=== PATIENT | female | born 2000 | race Hispanic/Latino ===

== ENCOUNTER 2022-07-30 19:00 | Inpatient (IN) | payer OTHER ==
[~2022-07-30 19:00] MED LIST: Bupivacaine 0.25% HCL 30 ML VIAL ONE; Bupivacaine PF 0.5% 30 ML VIAL ONE; Lidocaine 2% MPF 10 ML AMP (For Epidural Use) ONE
[2022-07-30] MEDS ORDERED: Acetaminophen 500 MG TAB PO PRN (22:16)
[2022-07-30] MEDS ORDERED: Misoprostol 200 MCG TAB PR PRN (22:16)
[2022-07-30] MEDS ORDERED: Carboprost 250 MCG/ML AMP IM PRN (22:16)
[2022-07-30] MEDS ORDERED: Diphenoxylate HCl/Atropine Tablet PO PRN ×2 (22:16)
[2022-07-30] MEDS ORDERED: Zolpidem Tartrate 5 MG TAB PO PRN (22:16)
[2022-07-30] MEDS ORDERED: hydrALAZINE 20 MG/ML VIAL SLOW IVP PRN (22:16)
[2022-07-30] MEDS ORDERED: Promethazine HCl 25 MG/ML VIAL IM PRN (22:16)
[2022-07-30] MEDS ORDERED: Docusate 100 MG CAP PO PRN (22:16)
[2022-07-30] MEDS ORDERED: Ondansetron PF 4 MG/2 ML Vial IVP PRN (22:16)
[2022-07-30] MEDS ORDERED: Ibuprofen 800 MG TAB PO PRN (22:16)
[2022-07-30] MEDS ORDERED: Lidocaine 1% (PF) 30 ML VIAL SC PRN (22:16)
[2022-07-30] MEDS ORDERED: Butorphanol Tartrate 1 MG/ML VIAL SLOW IVP PRN (22:16)
[2022-07-30] MEDS ORDERED: NS w/ Oxytocin 30 units 500 ML IV SCH ×3 (22:16)
[2022-07-30] MEDS ORDERED: HYDROcodone/Acetaminophen 5/325 mg Tablet PO PRN ×2 (22:16)
[2022-07-30 22:18] VITALS: BMI 36.2
[2022-07-31] MEDS: Lactated Ringer's 1,000 ML IV SCH ×2 (00:25→03:57)
[2022-07-31] MEDS: Misoprostol 100 MCG TAB VAG SCH ×2 (00:25→03:56)
[2022-07-31 00:48] LABS: Mean Corpuscular HGB CONC 31.8 g/dL (32.0-36.0); Mean Corpuscular Hemoglobin 24.7 pg (27.0-33.0); Mean Corpuscular Volume 77.5 fl (81.6-98.3); Mean Platelet Volume 10.9 fl (7.4-10.4); Platelet Count 282 10x3/uL (150-450); RBC Distribution Width 15.1 % (11.5-14.5); Red Blood Cell (RBC) Count 4.05 10x6/uL (3.90-5.03); White Blood Cell (WBC) Count 12.8 10x3/uL (3.5-10.5)
[2022-07-31 01:29] LABS: Syphilis Antibody Nonreactive (Nonreactive); Syphilis Antibody Index 0.58 S/CO (<1.00 Non-Reactive)
[2022-07-31 01:30] LABS: HBSAg Index 0.13 S/CO (0-0.99); HIV (1/2) Antibody/Antigen Non-Reactive (NonReactive); HIV 1/2 INDEX 0.08 S/CO (<1.00); Hep B Surf Ag - L&D Non-Reactive S/CO (NonReactive)
[2022-07-31] MEDS ORDERED: Fentanyl 2 mcg/Bup 0.1% Cadd 100 ML ONE ×2 (09:31→18:01)
[2022-07-31] MEDS ORDERED: Bisacodyl 10 MG SUPP PR PRN (20:41)
[2022-07-31] MEDS ORDERED: Ondansetron PF 4 MG/2 ML Vial IVP PRN (20:41)
[2022-07-31] MEDS ORDERED: Misoprostol 200 MCG TAB VAG PRN (20:41)
[2022-07-31] MEDS ORDERED: HYDROcodone/Acetaminophen 5/325 mg Tablet PO PRN (20:41)
[2022-07-31] MEDS ORDERED: Preparation H Ointment 28 GM TUBE PR PRN (20:41)
[2022-07-31] MEDS ORDERED: Benzocaine-Menthol 82.5 ML CAN TOP PRN (20:41)
[2022-07-31] MEDS ORDERED: Boostrix 0.5 ML (Tdap) VIAL (>/=7 yrs of age) IM ONE (20:41)
[2022-07-31] MEDS ORDERED: hydrALAZINE 20 MG/ML VIAL SLOW IVP PRN (20:41)
[2022-07-31] MEDS ORDERED: diphenhydrAMINE 25 MG CAP PO PRN (20:41)
[2022-07-31] MEDS ORDERED: Milk Of Magnesia 30 ML UDCUP PO PRN (20:41)
[2022-07-31] MEDS ORDERED: NS w/ Oxytocin 30 units 500 ML IV SCH (20:45)
[2022-08-01] MEDS: Ibuprofen 800 MG TAB PO SCH ×4 (00:38→21:56)
[2022-08-01] MEDS: Docusate 100 MG CAP PO SCH ×3 (00:55→21:55)
[2022-08-01 07:15] LABS: Hemoglobin 9.6 g/dL (12.0-15.5); Mean Corpuscular HGB CONC 32.4 g/dL (32.0-36.0); Mean Corpuscular Volume 77.1 fl (81.6-98.3); Mean Platelet Volume 10.6 fl (7.4-10.4); Platelet Count 297 10x3/uL (150-450); RBC Distribution Width 15.2 % (11.5-14.5); Red Blood Cell (RBC) Count 3.84 10x6/uL (3.90-5.03); White Blood Cell (WBC) Count 32.1 10x3/uL (3.5-10.5)
[2022-08-01] MEDS: Ferrous Sulfate 325 MG TAB PO SCH ×2 (08:53→17:46)
[2022-08-01] MEDS: Misoprostol 100 MCG TAB VAG SCH ×2 (08:55→08:56)
[2022-08-01] MEDS: Lactated Ringer's 1,000 ML IV SCH (08:56)
[2022-08-01] MEDS: HYDROcodone/Acetaminophen 5/325 mg Tablet PO PRN (10:36)
[2022-08-02] MEDS: Ibuprofen 800 MG TAB PO SCH ×2 (05:02→14:05)
[2022-08-02] MEDS: HYDROcodone/Acetaminophen 5/325 mg Tablet PO PRN (05:03)
[2022-08-02 07:49] VITALS: BP 115/57; TEMP 98.4
[2022-08-02] MEDS: Ferrous Sulfate 325 MG TAB PO SCH (08:48)
[2022-08-02] MEDS: Docusate 100 MG CAP PO SCH (08:49)
== END 2022-08-02 14:45 | disposition home or self-care (01) | DRG 806 ==
LOC: CSHLD 21:44 → CSHPED 08-01 00:10
PROVIDERS: ADMIT Obstetrics & Gynecology; ATTEND Obstetrics & Gynecology
PROC: 10E0XZZ Delivery of Products of Conception, External Approach (ICD-10-PCS; principal; 2022-07-31)
PROC: 0KQM0ZZ Repair Perineum Muscle, Open Approach (ICD-10-PCS; 2022-07-31)
DX: O69.81X0 Labor and delivery complicated by cord around neck, without compression, not applicable or unspecified (principal); O99.354 Diseases of the nervous system complicating childbirth; Z37.0 Single live birth; G43.909 Migraine, unspecified, not intractable, without status migrainosus; F41.9 Anxiety disorder, unspecified; F32.A Depression, unspecified; D64.9 Anemia, unspecified; O99.344 Other mental disorders complicating childbirth; O99.02 Anemia complicating childbirth; O70.1 Second degree perineal laceration during delivery; Z3A.40 40 weeks gestation of pregnancy; Z88.0 Allergy status to penicillin
CPT/HCPCS: 36415; 51702; 85027; 86780; 86850; 86900; 86901; 87340; 87389; J7120; S0020

== ENCOUNTER 2022-08-09 01:46 | Emergency (ER) | payer OTHER ==
[2022-08-10 00:46] LABS: Chlamydia by PCR, Vaginal Swab Not Detected (NotDetected); GC by PCR, Vaginal Swab Not Detected (NotDetected)
== END 2022-08-09 02:28 | disposition home or self-care (01) ==
LOC: CSHERS 01:46
DX: N76.0 Acute vaginitis (principal); F17.290 Nicotine dependence, other tobacco product, uncomplicated
CPT/HCPCS: 87480; 87491; 87510; 87591; 87660; 99283

== ENCOUNTER 2024-03-25 20:48 | Emergency (ER) | payer OTHER ==
[2024-03-25] MEDS ORDERED: Ketorolac Tromethamine 30 MG (1 mL) VIAL ONE (21:39)
[2024-03-25] MEDS ORDERED: Magnesium 2 GM/50 ML BAG (IN WATER) ONE (21:39)
[2024-03-25] MEDS ORDERED: Labetalol HCl 100 MG/20 ML VIAL ONE (21:39)
[2024-03-25 22:42] LABS: #Basophils 0.04 10x3/uL (0.0-0.2); #Eosinophils 0.11 10x3/uL (0.0-0.5); #Neutrophils 6.78 10x3/uL (1.5-8.4); %Basophils 0.4 % (0.0-2.0); %Eosinophils 1.2 % (0.0-6.0); %Lymphocytes 14.6 % (18.0-47.0); %Monocytes 7.7 % (0.0-10.0); %Neutrophils 74.9 % (40.0-75.0); Hematocrit 33.8 % (34.9-44.5); Hemoglobin 10.9 g/dL (12.0-15.5); Mean Corpuscular HGB CONC 32.2 g/dL (32.0-36.0); Mean Corpuscular Hemoglobin 24.6 pg (27.0-33.0); Mean Corpuscular Volume 76.3 fL (81.6-98.3); Mean Platelet Volume 8.9 fL (7.4-10.4); Platelet Count 380 10x3/uL (150-450); RBC Distribution Width 22.7 % (11.5-14.5); Red Blood Cell (RBC) Count 4.43 10x6/uL (3.90-5.03); White Blood Cell (WBC) Count 9.1 10x3/uL (3.5-10.5)
[2024-03-25 23:01] LABS: ALT (SGPT) 28 U/L (8-55); AST (SGOT) 20 U/L (5-34); Alkaline Phosphatase 115 U/L (40-110); Anion Gap 18 mmol/L (10-20); BUN (Urea Nitrogen) 8 mg/dL (7.0-18.7); Bilirubin, Total 0.3 mg/dL (0.2-1.2); Calc. Creatinine Clearance 0 mL/min (70-130); Carbon Dioxide 20 mmol/L (22-29); Chloride 106 mmol/L (98-107); Estimated GFR 115; Glucose 73 mg/dL (70-105); Lipase 49 U/L (8-78); Potassium 4.2 mmol/L (3.5-5.1); Sodium 140 mmol/L (136-145)
== END 2024-03-25 22:50 | disposition home or self-care (01) ==
LOC: CSHERS 20:48
DX: O14.95 Unspecified pre-eclampsia, complicating the puerperium (principal); O86.4 Pyrexia of unknown origin following delivery
CPT/HCPCS: 36415; 80053; 83605; 83690; 84145; 85025; 87040; 87428; 96374; 96375; J1885; J3475

== ENCOUNTER 2024-04-12 20:53 | Emergency (ER) | payer OTHER ==
[2024-04-12] MEDS ORDERED: Labetalol HCl 100 MG/20 ML VIAL ONE (21:24)
[2024-04-12] MEDS ORDERED: Magnesium 2 GM/50 ML BAG (IN WATER) ONE (21:25)
[2024-04-12 21:45] LABS: #Basophils 0.04 10x3/uL (0.0-0.2); #Eosinophils 0.21 10x3/uL (0.0-0.5); #Monocytes 0.61 10x3/uL (0.0-1.1); %Basophils 0.4 % (0.0-2.0); %Eosinophils 2.3 % (0.0-6.0); %Lymphocytes 13.5 % (18.0-47.0); %Monocytes 6.8 % (0.0-10.0); %Neutrophils 76.6 % (40.0-75.0); Hematocrit 35.1 % (34.9-44.5); Hemoglobin 11.4 g/dL (12.0-15.5); Mean Corpuscular HGB CONC 32.5 g/dL (32.0-36.0); Mean Corpuscular Hemoglobin 24.9 pg (27.0-33.0); Mean Corpuscular Volume 76.6 fL (81.6-98.3); Mean Platelet Volume 8.9 fL (7.4-10.4); Platelet Count 359 10x3/uL (150-450); RBC Distribution Width 18.6 % (11.5-14.5); Red Blood Cell (RBC) Count 4.58 10x6/uL (3.90-5.03)
[2024-04-12 22:01] LABS: Prothrombin Time 10.7 sec (9.5-12.1)
[2024-04-12 22:08] LABS: ALT (SGPT) 22 U/L (8-55); AST (SGOT) 16 U/L (5-34); Albumin 3.6 g/dL (3.5-5.0); Alkaline Phosphatase 80 U/L (40-110); Anion Gap 16 mmol/L (10-20); BUN (Urea Nitrogen) 12 mg/dL (7.0-18.7); Bilirubin, Total Less than 0.2 mg/dL (0.2-1.2); Calc. Creatinine Clearance 0 mL/min (70-130); Carbon Dioxide 21 mmol/L (22-29); Chloride 109 mmol/L (98-107); Estimated GFR 108; Globulin 3.7 g/dL (2.4-3.5); Glucose 106 mg/dL (70-105); Magnesium 1.8 mg/dL (1.6-2.6); Potassium 3.5 mmol/L (3.5-5.1); Protein, Total 7.3 g/dL (6.0-8.3); Sodium 142 mmol/L (136-145)
[2024-04-12 22:18] LABS: Bilirubin Neg (Negative); Blood, Urine Negative (Negative); Clarity Clear (Clear); Glucose, Urine (Dipstick) Normal (Negative); Ketone, Urine Negative (Negative); Leukocyte 100 (Negative); Nitrite Negative (Negative); Protein, Urine (Dipstick) Negative (Neg-Trace); Specific Gravity, Urine 1.005 (1.005-1.030); Urobilinogen Normal mg/dL (Less than 2)
[2024-04-12 22:39] LABS: Bacteria/HPF Rare-Few HPF (None Seen); CAUTI Indications for Culture Pregnancy; RBC/HPF 0-3 HPF (0-3); Squamous Epithelial 0-3 HPF (0-3); WBC/HPF 0-3 HPF (0-3)
[2024-04-12 22:40] LABS: Urine Culture Reflex Yes Yes
== END 2024-04-12 22:28 | disposition home or self-care (01) ==
LOC: CSHERS 20:53
DX: O16.5 Unspecified maternal hypertension, complicating the puerperium (principal); Z79.899 Other long term (current) drug therapy
CPT/HCPCS: 80053; 81001; 83735; 85025; 85610; 85730; 87086; 96374; 96375; J3475

== ENCOUNTER 2024-04-24 19:36 | Emergency (ER) | payer OTHER ==
[2024-04-24 21:06] LABS: #Basophils 0.03 10x3/uL (0.0-0.2); #Eosinophils 0.16 10x3/uL (0.0-0.5); #Monocytes 0.66 10x3/uL (0.0-1.1); #Neutrophils 7.11 10x3/uL (1.5-8.4); %Basophils 0.3 % (0.0-2.0); %Eosinophils 1.6 % (0.0-6.0); %Lymphocytes 19.7 % (18.0-47.0); %Monocytes 6.6 % (0.0-10.0); %Neutrophils 71.6 % (40.0-75.0); Hematocrit 36.6 % (34.9-44.5); Mean Corpuscular HGB CONC 32.8 g/dL (32.0-36.0); Mean Corpuscular Hemoglobin 24.7 pg (27.0-33.0); Mean Corpuscular Volume 75.5 fL (81.6-98.3); Mean Platelet Volume 8.9 fL (7.4-10.4); Platelet Count 412 10x3/uL (150-450); RBC Distribution Width 16.6 % (11.5-14.5); Red Blood Cell (RBC) Count 4.85 10x6/uL (3.90-5.03); White Blood Cell (WBC) Count 9.94 10x3/uL (3.5-10.5)
[2024-04-24 21:18] LABS: ALT (SGPT) 25 U/L (8-55); AST (SGOT) 19 U/L (5-34); Albumin 4.2 g/dL (3.5-5.0); Alkaline Phosphatase 87 U/L (40-110); Anion Gap 16 mmol/L (10-20); BUN (Urea Nitrogen) 12 mg/dL (7.0-18.7); Bilirubin, Total 0.2 mg/dL (0.2-1.2); Calc. Creatinine Clearance 0 mL/min (70-130); Calcium 10.2 mg/dL (7.8-10.44); Carbon Dioxide 24 mmol/L (22-29); Chloride 103 mmol/L (98-107); Estimated GFR 107; Glucose 91 mg/dL (70-105); Lipase 78 U/L (8-78); Potassium 3.9 mmol/L (3.5-5.1); Protein, Total 8.2 g/dL (6.0-8.3); Sodium 139 mmol/L (136-145)
[2024-04-24 21:24] LABS: Troponin I Less than 0.010 ng/mL (< 0.028)
[2024-04-24 22:33] LABS: Bilirubin Neg (Negative); Blood, Urine 250 (Negative); Clarity Cloudy (Clear); Glucose, Urine (Dipstick) Normal (Negative); Ketone, Urine 15 mg/dL (Negative); Leukocyte 25 (Negative); Nitrite Negative (Negative); Protein, Urine (Dipstick) 30 mg/dl (Neg-Trace); Urobilinogen Normal mg/dL (Less than 2)
[2024-04-24 22:41] LABS: Bacteria/HPF Rare-Few HPF (None Seen); CAUTI Indications for Culture Pregnancy; RBC/HPF 21-50 HPF (0-3); Squamous Epithelial 0-3 HPF (0-3); WBC/HPF 0-3 HPF (0-3)
[2024-04-24 22:43] LABS: Urine Culture Reflex Yes Yes
[2024-04-24 23:15] LABS: Pregnancy Test - Urine (BHCG) Negative (Negative); Pregu Control Background? CLEAR/WHITE (CLR/WHITE); Pregu Control Bar Appear? YES (CONTROL BAR)
== END 2024-04-24 23:53 | disposition home or self-care (01) ==
LOC: CSHERS 19:36
DX: K80.20 Calculus of gallbladder without cholecystitis without obstruction (principal)
CPT/HCPCS: 36415; 71045; 74176; 80053; 81001; 81025; 83690; 84484; 85025; 85379; 87086; 93005

== ENCOUNTER 2024-05-12 10:39 | Outpatient (CLI) | payer OTHER ==
[2024-05-12 11:48] LABS: #Basophils Less than 0.03 10x3/uL (0.0-0.2); #Eosinophils 0.33 10x3/uL (0.0-0.5); #Monocytes 0.65 10x3/uL (0.0-1.1); #Neutrophils 5.58 10x3/uL (1.5-8.4); %Basophils 0.3 % (0.0-2.0); %Eosinophils 4.1 % (0.0-6.0); %Lymphocytes 16.9 % (18.0-47.0); %Monocytes 8.2 % (0.0-10.0); Hematocrit 34.8 % (34.9-44.5); Hemoglobin 10.8 g/dL (12.0-15.5); Mean Corpuscular Hemoglobin 23.9 pg (27.0-33.0); Mean Platelet Volume 9.1 fL (7.4-10.4); Platelet Count 407 10x3/uL (150-450); RBC Distribution Width 15.2 % (11.5-14.5); Red Blood Cell (RBC) Count 4.52 10x6/uL (3.90-5.03); White Blood Cell (WBC) Count 7.97 10x3/uL (3.5-10.5)
[2024-05-12 12:00] LABS: BHCG - Serum Negative (NEGATIVE); Pregs Control Background? CLEAR/WHITE (CLR/WHITE); Pregs Control Bar Appear? YES (CONTROL BAR)
[2024-05-12 12:06] LABS: ALT (SGPT) 42 U/L (Less than 34); AST (SGOT) 31 U/L (11-34); Albumin 4.3 g/dL (3.1-4.5); Alkaline Phosphatase 128 U/L (40-110); Anion Gap 14 mmol/L (10-20); BUN (Urea Nitrogen) 13 mg/dL (7.0-18.7); Bilirubin, Total 0.3 mg/dL (0.3-1.2); Calc. Creatinine Clearance 0 mL/min (70-130); Calcium 9.7 mg/dL (7.8-10.44); Carbon Dioxide 26 mmol/L (22-29); Chloride 105 mmol/L (98-107); Estimated GFR 108; Globulin 3.1 g/dL (2.4-3.5); Glucose 87 mg/dL (70-105); Potassium 4.2 mmol/L (3.5-5.1); Protein, Total 7.4 g/dL (6.0-8.3); Sodium 141 mmol/L (136-145)
== END 2024-05-12 10:40 | disposition home or self-care (01) ==
LOC: CSHLAB 10:39
PROVIDERS: ATTEND Specialist
DX: Z01.818 Encounter for other preprocedural examination (principal); K80.20 Calculus of gallbladder without cholecystitis without obstruction
CPT/HCPCS: 80053; 84703; 85025; 93005; 93010

== ENCOUNTER 2024-05-19 11:30 | Day surgery (SDC) | payer OTHER ==
[2024-05-12 10:57] VITALS: BMI 28.7
[2024-05-19] MEDS ORDERED: Ketorolac Tromethamine 30 MG (1 mL) VIAL ONE (11:51)
[2024-05-19] MEDS ORDERED: Acetaminophen 500 MG TAB ONE (11:51)
[2024-05-19] MEDS ORDERED: Bupivacaine/Epinephrine 0.25% 30 ML VIAL ONE (13:39)
[2024-05-19] MEDS ORDERED: Indocyanine Green 25 MG/10 ML VIAL ONE (13:39)
[2024-05-19] MEDS ORDERED: Lidocaine 4% PF 5 ML AMP ONE (13:45)
[2024-05-19] MEDS ORDERED: Rocuronium Bromide 10 MG/ML (10ML VIAL) ONE (13:46)
[2024-05-19] MEDS ORDERED: Lidocaine 1% PF 5 ML VIAL ONE (13:46)
[2024-05-19] MEDS ORDERED: Ondansetron PF 4 MG/2 ML Vial ONE (13:46)
[2024-05-19] MEDS ORDERED: Dexamethasone 4 mg/ml Vial ONE (13:46)
[2024-05-19] MEDS ORDERED: fentaNYL 50 mcg/mL 1 mL Vial ONE ×3 (13:46→14:50)
[2024-05-19] MEDS ORDERED: Dexmedetomidine 200 MCG/2 ML VIAL ONE (14:24)
[2024-05-19] MEDS ORDERED: SUGAMMADEX SODIUM 200 MG/2 ML VIAL ONE (14:39)
== END 2024-05-19 16:50 | disposition home or self-care (01) ==
LOC: CSHSDC 11:30
PROVIDERS: ATTEND Specialist
PROC: 0FT44ZZ Resection of Gallbladder, Percutaneous Endoscopic Approach (ICD-10-PCS; principal; 2024-05-19)
DX: K80.10 Calculus of gallbladder with chronic cholecystitis without obstruction (principal); K82.8 Other specified diseases of gallbladder; I10 Essential (primary) hypertension; G43.909 Migraine, unspecified, not intractable, without status migrainosus; F41.9 Anxiety disorder, unspecified; F32.A Depression, unspecified; F10.90 Alcohol use, unspecified, uncomplicated; Y90.9 Presence of alcohol in blood, level not specified; Z87.891 Personal history of nicotine dependence; Z90.89 Acquired absence of other organs; Z88.0 Allergy status to penicillin; Z79.899 Other long term (current) drug therapy
CPT/HCPCS: 88304; C1889; J1100; J1885; J2405; J3010; S2900

== ENCOUNTER 2024-06-12 02:02 | Emergency (ER) | payer OTHER ==
[2024-06-12] MEDS ORDERED: Droperidol 5 MG/2 ML VIAL ONE (02:18)
[2024-06-12] MEDS ORDERED: diphenhydrAMINE 50 MG/ML VIAL ONE (02:19)
[2024-06-12 02:30] LABS: #Basophils Less than 0.03 10x3/uL (0.0-0.2); #Eosinophils 0.37 10x3/uL (0.0-0.5); #Monocytes 0.72 10x3/uL (0.0-1.1); %Basophils 0.2 % (0.0-2.0); %Eosinophils 3.3 % (0.0-6.0); %Lymphocytes 17.8 % (18.0-47.0); %Monocytes 6.4 % (0.0-10.0); %Neutrophils 71.7 % (40.0-75.0); Hematocrit 33.9 % (34.9-44.5); Hemoglobin 10.4 g/dL (12.0-15.5); Mean Corpuscular HGB CONC 30.7 g/dL (32.0-36.0); Mean Corpuscular Hemoglobin 23.4 pg (27.0-33.0); Mean Corpuscular Volume 76.2 fL (81.6-98.3); Mean Platelet Volume 8.6 fL (7.4-10.4); Platelet Count 415 10x3/uL (150-450); RBC Distribution Width 14.6 % (11.5-14.5); Red Blood Cell (RBC) Count 4.45 10x6/uL (3.90-5.03); White Blood Cell (WBC) Count 11.17 10x3/uL (3.5-10.5)
[2024-06-12 02:44] LABS: BHCG - Serum Negative (NEGATIVE); Pregs Control Background? CLEAR/WHITE (CLR/WHITE); Pregs Control Bar Appear? YES (CONTROL BAR)
[2024-06-12 02:49] LABS: Anion Gap 16 mmol/L (10-20); BUN (Urea Nitrogen) 11 mg/dL (7.0-18.7); Calc. Creatinine Clearance 0 mL/min (70-130); Calcium 9.6 mg/dL (7.8-10.44); Carbon Dioxide 23 mmol/L (22-29); Chloride 104 mmol/L (98-107); Estimated GFR 114; Glucose 119 mg/dL (70-105); Potassium 3.6 mmol/L (3.5-5.1); Sodium 139 mmol/L (136-145)
== END 2024-06-12 03:54 | disposition home or self-care (01) ==
LOC: CSHERS 02:02
DX: R07.81 Pleurodynia (principal); G43.919 Migraine, unspecified, intractable, without status migrainosus; I10 Essential (primary) hypertension; Z79.899 Other long term (current) drug therapy
CPT/HCPCS: 71046; 80048; 84703; 85025; 85379; 93005; 96374; 96375; J1200; J1790